=== PATIENT | female | born 1980 | race Two or more races ===

== ENCOUNTER 2024-07-10 20:10 | Emergency (ER) | payer MEDICAID, SELFPAY ==
[2024-07-10 20:13] VITALS: BP 161/87; PULSE 83; RESP 20; TEMP 36.8; O2SAT 100
[2024-07-10 20:31] VITALS: PULSE 76; RESP 18; O2SAT 98
[2024-07-10 20:33] VITALS: BMI 42.5
--- NOTE | 2024-07-10 21:06 | PD.EDRME ---
Rapid Medical Screening Exam RME Arrival date/time: 07/10/24 20:10 44 year old female present to Ed for c/o of chest Pain for 1 day I have greeted and performed a focused initial assessment of this patient. A comprehensive ED assessment and evaluation of the patient, analysis of all test results, and completion of the medical decision making process will be conducted by additional ED providers. Chief Complaint: Chest Pain Time Seen by Provider: 07/10/24 20:21 Vital signs: Vital Signs Temperature 98.3 F 07/10/24 20:13 Pulse Rate 83 07/10/24 20:13 Respiratory Rate 20 07/10/24 20:13 Blood Pressure 161/87 H 07/10/24 20:13 Pulse Oximetry (%) 100 07/10/24 20:13 Oxygen Delivery Method Room Air 07/10/24 20:13
--- NOTE | 2024-07-10 21:07 | XR_ITS ---
Examination: PA lateral chest 2 views Technique: Upright PA lateral chest 2 views Exam date and time: July 10, 2024 2115 hrs. Comparison May 05, 2020 Indications: Onset chest pain today. Findings: Normal heart size The lungs are clear. The osseous structures are intact. Impression: No active disease
[2024-07-10 21:09] VITALS: BP 167/88; PULSE 74; RESP 17; TEMP 36.9; O2SAT 99
[2024-07-10 21:48] LABS: Basophils % (Auto) 0 % (0-2.5); Eosinophils # (Auto) 0.3 Thou/mm3 (0.0-0.5); Eosinophils % (Auto) 3 % (0-10); Hematocrit 30.5 % (36.0-46.0); Hemoglobin 9.2 g/dL (12.0-16.0); Immature Granulocytes % (Auto) 0 % (0-0); Immature Granulocytes Auto 0.02 Thou/mm3 (0.00-0.00); Lymphocytes # (Auto) 2.8 Thou/mm3 (1.0-4.8); Lymphocytes % (Auto) 29 % (10-50); Mean Corpuscular HGB Conc 30.2 g/dl (31.0-37.0); Mean Corpuscular Hemoglobin 20.7 pg (25.0-35.0); Mean Corpuscular Volume 69 fL (80-100); Monocytes # (Auto) 0.5 Thou/mm3 (0.0-0.8); Monocytes % (Auto) 5 % (0-12); Neutrophils % (Auto) 63 % (37-80); Nucleated Red Blood Cell % 0 /100 WBC (0); Platelet Count 408 Thou/mm3 (140-440); RDW Standard Deviation 46.4 fL (36.4-46.3); Red Blood Count 4.44 Miln/mm3 (4.00-5.20); White Blood Count 9.6 Thou/mm3 (3.6-11.0)
[2024-07-10 21:50] LABS: B-Type Natriuretic Peptide < 20 pg/mL (0-100)
[2024-07-10 21:52] LABS: Alanine Aminotransferase 24 U/L (10-49); Albumin, Serum 4.4 gm/dL (3.5-5.0); Albumin/Globulin Ratio 1.5 (1.2-2.2); Alkaline Phosphatase 63 U/L (46-116); Anion Gap 8 (7-16); Aspartate Amino Transferase 16 U/L (0-34); BUN/Creatinine Ratio 11 Ratio (12-20); Bilirubin,Total 0.3 mg/dL (0.3-1.2); Blood Urea Nitrogen 9 mg/dL (9-23); Calcium 9.2 mg/dL (8.3-10.6); Calcium (Corrected) 9.2 mg/dL (8.5-10.1); Carbon Dioxide 24.7 mMol/L (20.0-31.0); Chloride 106 mMol/L (98-107); Creatinine (Component) 0.8 mg/dL (0.6-1.3); Estimated Creatinine Clearance 105.1 mL/min (>60); Glucose 99 mg/dL (74-106); Lipase 36 U/L (12-53); Magnesium 1.8 mg/dL (1.6-2.6); Osmolality,Calculated 276 (275-295); Potassium 3.7 mMol/L (3.4-5.1); Sodium 139 mMol/L (136-145); Total Protein 7.4 gm/dL (5.7-8.2); Troponin I < 0.020 ng/mL (0.0-0.045); eGFR > 60 See Note
[2024-07-10 22:22] LABS: HCG,Qualitative Serum Negative
--- NOTE | 2024-07-11 00:56 | EDNOTE_ITS ---
ED Chest Pain RME/HPI General Chief Complaint: Chest Pain Stated Complaint: CHEST PAIN Time Seen by Provider: 07/10/24 20:21 Arrival date/time: 07/10/24 20:10 44 year old female present to emergency room with c/o of chest pain for 1 day. LOCATION: chest SEVERITY: Symptoms are described as being severe with limitations on activities of daily living CONTEXT: The patient is unable to identify any inciting events. DURATION/TIMING: The symptoms started approximately 1 day ASSOCIATED SYMPTOMS: The patient is unable to identify any other associated symptoms. MODIFYING FACTORS: The patient is unable to identify any alleviating or aggravating symptoms. PERTINENT ROS: no fevers, no cough, no pleuritic pain, no ripping or tearing sensations, denies any lower extremity edema and no unilateral swelling, no shortness of breath no nausea,vomiting, diarrhea, no dizziness/headache no rash no loc/syncope episode no abd/back pain no dsyuria,urgency,frequency REVIEW OF SYSTEMS: See History of Present Illness - with the exception of those mentioned in the history of present illness, all other systems reviewed and reported as negative GENERAL: In general the patient is awake, interactive, in an emergency department gurney. HEAD/EYES/EARS/NOSE/THROAT: normo-cephalic, atraumatic, mucus membranes are mo ist, anicteric, palpebral conjunctiva is pink, trachea is midline. CARDIOVASCULAR: regular rate and regular rhythm, no murmurs, heart sounds are not distant, strong pulses in all four extremities that are equal and symmetric bilateral upper and lower extremities, normal capillary refill. CHEST/PULMONARY: normal chest rise and fall, good air movement, clear to auscultation bilaterally, normal inspiratory to expiratory ratios without evidence of respiratory distress. NECK: No midline/Paraspinal tenderness, no step off ROM/Strenght intact No Kernig and bruzinski sign. No trauma ABDOMEN: soft, not tender, no masses appreciated BACK: normal range of motion without pain. NEUROLOGICAL: cranio-facial features are symmetric, moves all four extremities equally without obvious limitations or weakness. EXTREMITY: no tenderness to palpation over the long bones or large joints of the bilateral upper and lower extremities, no joint swelling, no joint erythema, no signs of trauma, no unilateral leg swelling and no peripheral edema. SKIN: warm, dry, well-perfused, no jaundice, no rash, no telangiectasias or petechia. PSYCH: calm, cooperative, no evidence of psychosis or agitation RME / HPI RME / HPI narrative: 07/10/24 20:10 44 year old female present to Ed for c/o of chest Pain for 1 day I have greeted and performed a focused initial assessment of this patient. A comprehensive ED assessment and evaluation of the patient, analysis of all test results, and completion of the medical decision making process will be conducted by additional ED providers. Related Data Previous Rx's ?Medication ?Instructions ?Recorded ibuprofen 800 mg tablet 800 mg PO TID PRN pain #30 tabs 05/06/20 Allergies Allergy/AdvReac Type Severity Reaction Status Date / Time codeine Allergy Unknown SEVERE Verified 03/25/14 07:29 NAUSEA & RASH No Known Allergies Allergy Unknown Uncoded 03/29/03 07:13 Course Course Course Narrative: Given History, Exam, and Workup I have low suspicion for ACS, Pneumothorax, Bacterial Pneumonia, Pulmonary Embolus, Tamponade, Aortic Dissection or other emergent problem as a cause for this presentation.? Last Stress Test:? never Last Heart Catheterization:? never HEART Score: 0 PERC negative low risk for PE? Quality Measures none Orders Category Date Time Status EKG (ED ONLY) *Do not use* NOW Care 07/10/24 21:07 Completed EKG (ED Only) Stat Exams 07/10/24 21:07 Ordered XR chest 2V Stat Exams 07/10/24 21:07 Completed B-Type Natriuretic Peptide Stat Lab 07/10/24 21:25 Completed CBC Stat Lab 07/10/24 21:25 Completed Comprehensive Metabolic Panel Stat Lab 07/10/24 21:25 Completed HCG,Qualitative Serum Stat Lab 07/10/24 21:25 Completed Lipase Stat Lab 07/10/24 21:25 Completed Magnesium Stat Lab 07/10/24 21:25 Completed Troponin I Stat Lab 07/10/24 21:25 Completed Vital Signs Vital signs: Vital Signs Temperature 98.3 F 07/10/24 20:13 Pulse Rate 83 07/10/24 20:13 Respiratory Rate 20 07/10/24 20:13 Blood Pressure 161/87 H 07/10/24 20:13 Pulse Oximetry (%) 100 07/10/24 20:13 Oxygen Delivery Method Room Air 07/10/24 20:13 Procedures -ED EKG Interpretation #1: Date of EK07/10/24 Rate: 71 Interpretation: Reviewed by me EKG Impression: Normal sinus rhythm, No acute ST-T changes and No ischemic changes Chest Pain Patient data External records reviewed:: None Clinical information provided by:: patient Social determinants that could affect healthcare access:: none Patient has the following chronic illnesses:: none How is presenting disease/condition affected by chronic disease/condition?: no chronic disease Evaluation data The following diagnostics were reviewed and interpreted by me:: lab results, radiology exam(s) and EKG tracing(s) Lab and/or radiology exams considered but not ordered:: none Interpretation Summary: CXR: nad cbc/cmp no acute findings trop negative bnp wnl none Medications / Prescriptions Medications or Prescriptions considered but not ordered:: none Medication administrations:: none Consultations Consultation(s) initiated? (list below): No Diagnosis Most likely diagnosis given after review of the tests above:: chest pain Admission Indicated Admission indicated?: not indicated Admission Request Was there a request for admission?: No Disposition Plan Disposition Plan: Discharge Discharge Attestation Discharge Attestation: The patient and all family members were given an opportunity to ask questions and understood the discharge instructions. Discharge instructions specifically effects, indications for sooner follow up or return to the emergency department, and the expected course of current diagnosis. Patient condition: Stable Discharge Plan Plan Patient Disposition: HOME (Self Care) Health Concerns: Follow with PMD as directed Take tylenol or motrin as need Return to ED if sx worsen Prescriptions/Referrals Prescriptions/Med Rec: No Action ibuprofen 800 mg tablet 800 mg PO TID PRN (Reason: pain) Qty: 30 0RF Referrals: No Primary/Family,Physician [Primary Care Provider] - In 1 week Problem List Clinical Impression: Chest pain Patient/Caregiver Discharge Instructions Education Materials: ED Chest Pain, Uncertain Cause Print Language: Gabonese Stand Alone Forms: Kimberly Award Info., Patient Portal Info Letter
== END 2024-07-11 01:01 | disposition home or self-care (01) ==
PROVIDERS: Physician Assistant; Emergency Provider Emergency Medicine
DX: R07.9 Chest pain, unspecified (principal); I45.10 Unspecified right bundle-branch block
CPT/HCPCS: 36415; 71046; 80053; 83690; 83735; 83880; 84484; 84703; 85025; 93005; 99283

== ENCOUNTER 2025-03-12 11:04 | Emergency (ER) | payer MEDICAID, SELFPAY ==
--- NOTE | 2025-03-12 11:07 | EKG_ITS ---
[facility] Test Date: 2025-03-12 Pat Name: JI VARGAS Department: Room: - Gender: Female [employer]er: : 1980 Requested By: ED Temporary Provider Order Number: [id number] Reading MD: ED Temporary Provider Measurements Intervals Candor Rate: 78 P: 32 ID: [id number] QRS: -1 QRSD: 94 T: 9 QT: 367 QTc: 420 Interpretive Statements SINUS RHYTHM MINIMAL VOLTAGE CRITERIA FOR LVH, CONSIDER NORMAL VARIANT [MEETS CRITERIA IN ONE OF: R(aVL), S(V1), R(V5), R(V5/V6)+S(V1)] No previous ECG available for comparison /store/S0/[id number].pdf
[2025-03-12 11:16] VITALS: BP 145/85; PULSE 78; RESP 19; TEMP 36.7; O2SAT 98; BMI 43.9
--- NOTE | 2025-03-12 11:34 | XR_ITS ---
Examination: PA lateral chest 2 views TECHNIQUE: Upright PA lateral chest 2 views Date and time: March 12, 2000 2512 noon, comparison July 10, 2024 FINDINGS: Normal heart size. Suspicious for 9 mm pulmonary nodule left upper lobe No pneumonia or pulmonary edema IMPRESSION: Recommend CT chest without contrast follow-up to confirm 9 mm pulmonary nodule left upper lobe
--- NOTE | 2025-03-12 11:34 | XR_ITS ---
Examination: CT brain head without contrast. 2-D sagittal coronal reconstructions Date and time of exam:March 12, 2025 11:50 PM a.m. INDICATIONS: Severe generalized head pain today COMPARISON: May 05, 2020 CTDI: vol (mGy):53.4 DLP: (mGycm):1017 Technique: Multiple CT axial sections of the brain have been obtained, 5 mm slice thickness. Contrast has not been administered. 2-D sagittal, coronal reconstructions have been obtained Low dose protocols were performed. One or more of the following dose reduction techniques were used; automated exposure control, adjustment of the mA and/or KV according to patient size, use of iterative reconstruction technique. Findings: No significant ventricular enlargement. Intra-axial or extra-axial hemorrhage density is not seen. No mass effect or midline shift Basal cisterns are not remarkable. Fourth ventricle is midline. Cranial vault intact. Impression: Negative for acute hemorrhage, mass effect or midline shift Advise clinical correlation follow-up accordingly
--- NOTE | 2025-03-12 11:34 | PD.EDRME ---
Rapid Medical Screening Exam RME Arrival date/time: 03/12/25 11:04 45-year-old female presents to the Emergency Department today for complaints of headache and chest pain Chief Complaint: Chest Pain Vital signs: Vital Signs Temperature 98.0 F 03/12/25 11:16 Pulse Rate 78 03/12/25 11:16 Respiratory Rate 19 03/12/25 11:16 Blood Pressure 145/85 H 03/12/25 11:16 Pulse Oximetry (%) 98 03/12/25 11:16 Oxygen Delivery Method Room Air 03/12/25 11:16
[2025-03-12 12:07] LABS: Basophils # (Auto) 0.0 Thou/mm3 (0.0-0.2); Basophils % (Auto) 0 % (0-2.5); Eosinophils # (Auto) 0.2 Thou/mm3 (0.0-0.5); Eosinophils % (Auto) 2 % (0-10); Hematocrit 30.4 % (36.0-46.0); Hemoglobin 9.0 g/dL (12.0-16.0); Immature Granulocytes Auto 0.02 Thou/mm3 (0.00-0.00); Lymphocytes # (Auto) 2.6 Thou/mm3 (1.0-4.8); Lymphocytes % (Auto) 30 % (10-50); Mean Corpuscular HGB Conc 29.6 g/dl (31.0-37.0); Mean Corpuscular Hemoglobin 20.4 pg (25.0-35.0); Mean Corpuscular Volume 69 fL (80-100); Monocytes # (Auto) 0.5 Thou/mm3 (0.0-0.8); Monocytes % (Auto) 5 % (0-12); Neutrophils # (Auto) 5.6 Thou/mm3 (1.8-7.7); Neutrophils % (Auto) 63 % (37-80); Nucleated Red Blood Cell # 0.00 Thou/mm3 (0.00-0.00); Nucleated Red Blood Cell % 0 /100 WBC (0); Platelet Count 427 Thou/mm3 (140-440); RDW Standard Deviation 47.3 fL (36.4-46.3); Red Blood Count 4.41 Miln/mm3 (4.00-5.20); White Blood Count 8.9 Thou/mm3 (3.6-11.0)
[2025-03-12 12:31] LABS: Alanine Aminotransferase 20 U/L (10-49); Albumin, Serum 3.9 gm/dL (3.5-5.0); Albumin/Globulin Ratio 1.4 (1.2-2.2); Alkaline Phosphatase 54 U/L (46-116); Anion Gap 9 (7-16); Aspartate Amino Transferase 20 U/L (0-34); BUN/Creatinine Ratio 10 Ratio (12-20); Bilirubin,Total 0.4 mg/dL (0.3-1.2); Blood Urea Nitrogen 7 mg/dL (9-23); Calcium 8.9 mg/dL (8.3-10.6); Calcium (Corrected) 9.0 mg/dL (8.5-10.1); Carbon Dioxide 23.5 mMol/L (20.0-31.0); Chloride 108 mMol/L (98-107); Creatinine (Component) 0.7 mg/dL (0.6-1.3); Estimated Creatinine Clearance 116.7 mL/min (>60); Free T4 (Free Thyroxine) 1.01 ng/dL (0.89-1.76); Globulin 2.7 gm/dL (2.3-3.5); Glucose 108 mg/dL (74-106); Osmolality,Calculated 278 (275-295); Potassium 3.7 mMol/L (3.4-5.1); Sodium 140 mMol/L (136-145); Thyroid Stimulating Hormone 3.33 uIU/mL (0.55-4.78); Total Protein 6.6 gm/dL (5.7-8.2); Troponin I < 0.020 ng/mL (0.0-0.045); eGFR > 60 See Note
--- NOTE | 2025-03-12 14:05 | PD.EDCHEST ---
ED Chest Pain RME/HPI General Chief Complaint: Chest Pain Stated Complaint: CHEST PAIN, HEADACHE, N/V Time Seen by Provider: 03/12/25 12:52 Arrival date/time: 03/12/25 11:04 RME / HPI RME / HPI narrative: 03/12/25 11:04 45-year-old female presents to the Emergency Department today obesity, came in for evaluation regarding midsternal chest pain. Onset of symptoms around 10:00 this morning sudden onset of midsternal chest pain, it happened while working, described as sharp pain, severity moderate. Patient also complained of headache and dizziness. Patient is denying any focal neurologic deficit. Patient is ambulatory and denies any cough denies any fever denies any shortness of breath. No medication was taken prior to ER visit. 4 Related Data Previous Rx's ?Medication ?Instructions ?Recorded ibuprofen 800 mg tablet 800 mg PO TID PRN pain #30 tabs 05/06/20 pantoprazole 40 mg tablet,delayed 40 mg PO QDAY #20 tabs 03/12/25 release (Protonix) Allergies Allergy/AdvReac Type Severity Reaction Status Date / Time codeine Allergy Unknown SEVERE Verified 03/25/14 07:29 NAUSEA & RASH Review of Systems Review of Systems Narrative Review of Systems: Review of system reviewed and within normal limits except mentioned in HPI ED Exam Narrative Physical exam: VITAL SIGNS: Reviewed. GENERAL APPEARANCE: Alert and interactive, follows commands, no acute distress, HEAD AND FACE: Non-traumatic. ENT: PERRL, pink conjunctivitis, eyelid no trauma, Mucous membrane moist. NECK: Supple, nontender, no nuchal rigidity. CHEST:+ Substernal tenderness, no crepitus, no paradoxical movement, no retractions. LUNGS: Clear, well ventilated, symmetric, no rales, no wheezing, no ronchi, no stridor, good breath sounds bilaterally. HEART: Regular rate, regular rhythm, no murmur, no gallops. ABDOMEN: Soft, positive bowel sounds, nondistended, no guarding, nontender, no rebound, no masses, RECTAL: Deferred. GENITAL: Deferred. NEUROLOGICAL: Gross motor function intact sensory function intact, Appropriate for age. MUSCULOSKELETAL: low back nontender, full range of motion. EXTREMITIES: Nontender, full range of motion. SKIN: Color pink, dry, no rash, no lacerations, no abrasions, no contusions. LYMPHATICS: Deferred. Course Quality Measures none Orders Category Date Time Status EKG (ED ONLY) *Do not use* NOW Care 03/12/25 11:[address] head/brain wo con Stat Exams 03/12/25 11:34 Completed EKG (ED Only) Stat Exams 03/12/25 11:07 Draft XR chest 2V Stat Exams 03/12/25 11:34 Completed CBC Stat Lab 03/12/25 11:40 Completed Comprehensive Metabolic Panel Stat Lab 03/12/25 11:40 Completed Free T4 (Free Thyroxine) Stat Lab 03/12/25 11:40 Completed TSH [Thyroid Stimulating Hormone] Stat Lab 03/12/25 11:40 Completed Troponin I Stat Lab 03/12/25 11:40 Completed Troponin I Stat Lab 03/12/25 14:20 Completed Ketorolac Inj [Toradol Inj] Med 03/12/25 14:04 Discontinued 30 mg IM X1 ONE mg Hyd/Al Hyd/Pavel Susp [Maalox Susp] Med 03/12/25 14:04 Discontinued 30 ml PO X1 ONE Vital Signs Vital signs: Vital Signs Temperature 98.0 F 03/12/25 11:16 Pulse Rate 78 03/12/25 11:16 Respiratory Rate 19 03/12/25 11:16 Blood Pressure 145/85 H 03/12/25 11:16 Pulse Oximetry (%) 98 03/12/25 11:16 Oxygen Delivery Method Room Air 03/12/25 11:16 Chest Pain MDM Narrative MDM Narrative:: 45-year-old female presents to the Emergency Department today obesity, came in for evaluation regarding midsternal chest pain. Onset of symptoms around 10:00 this morning sudden onset of midsternal chest pain, it happened while working, described as sharp pain, severity moderate. Patient also complained of headache and dizziness. Patient is denying any focal neurologic deficit. Patient is ambulatory and denies any cough denies any fever denies any shortness of breath. No medication was taken prior to ER visit. CT scan of the head came back unremarkable. Patient's chest x-ray showed came back with 9 mm nodule on the left upper lung patient told me that she had a history of valley fever, completed treatment for 3 months. Laboratory workup unremarkable including initial troponin which is normal. TSH is normal also. Patient EKG showed normal sinus rhythm ventricular rate of 78 bpm. Repeat troponin was done and also came back unremarkable after 3 hours. Was given Toradol and Maalox. Her repeat troponin also came back normal. Results discussed with the patient. Patient stable for discharge home. Patient data External records reviewed:: None Clinical information provided by:: none Social determinants that could affect healthcare access:: none Patient has the following chronic illnesses:: None How is presenting disease/condition affected by chronic disease/condition?: no chronic disease Evaluation data The following diagnostics were reviewed and interpreted by me:: lab results, radiology exam(s) and EKG tracing(s) Lab and/or radiology exams considered but not ordered:: None see results and Interpretation Summary: See results MDM Medications / Prescriptions Medications or Prescriptions considered but not ordered:: None Medication administrations:: Medication Administration History Discontinued Medications Al Hydrox/Mg Hydrox/Simethicone (Mg Hyd/Al Hyd/Pavel (Maalox Reg) Susp 30 Ml Udc) 30 ml PO X1 ONE Stop: 03/12/25 14:05 Last Admin: 03/12/25 14:20 Dose: 30 ml Documented By: RADHA Ketorolac Tromethamine (Ketorolac Inj 60 Mg/2 Ml Vial) 30 mg IM X1 ONE Stop: 03/12/25 14:05 Last Admin: 03/12/25 14:20 Dose: 30 mg Documented By: RADHA Maalox and Toradol Consultations Consultation(s) initiated? (list below): No Diagnosis Chest Pain Differential Diagnosis: pneumothorax and chest pain Most likely diagnosis given after review of the tests above:: Headache chest pain Admission Indicated Admission indicated?: not indicated Admission Request Was there a request for admission?: No Disposition Plan Disposition Plan: Discharge Discharge Attestation Discharge Attestation: The patient was given an opportunity to ask questions and understood the discharge instructions. Discharge instructions specifically effects, indications for sooner follow up or return to the emergency department, and the expected course of current diagnosis. Patient condition: Stable Discharge Plan Plan Patient Disposition: HOME (Self Care) Discharge Disposition comment: Stable Prescriptions/Referrals Prescriptions/Med Rec: New pantoprazole [Protonix] 40 mg tablet,delayed release (DR/EC) 40 mg PO QDAY Qty: 20 0RF No Action ibuprofen 800 mg tablet 800 mg PO TID PRN (Reason: pain) Qty: 30 0RF Referrals: Elizabeth Potts PA-C [Primary Care Provider] - In 1 week Problem List Clinical Impression: Chest pain, Head ache Patient/Caregiver Discharge Instructions Discharge Activity: activity as tolerated Education Materials: Self-Care for Headaches Additional Instructions: Thank you for the opportunity for serving you today. You are stable for discharged . You are advised to: Follow-up with your PCP in 1 to 2 days Return to ED for worsening of symptoms Increase oral fluids Take medication as prescribed Print Language: Indonesian Stand Alone Forms: Kimberly Award Info., Patient Portal Info Letter CHANG/JAVIER Supervising Physician TIM Supervising Physician: MD Momo
[2025-03-12] MEDS: MG HYD/AL HYD/SIME (Maalox Reg) SUSP 30 ML UDC PO (14:20)
[2025-03-12] MEDS: KETOROLAC INJ 60 MG/2 ML VIAL 30 MG IM (14:20)
[2025-03-12 14:45] LABS: Troponin I < 0.020 ng/mL (0.0-0.045)
== END 2025-03-12 16:15 | disposition home or self-care (01) ==
PROVIDERS: Nurse Practitioner Family; Emergency Provider Nurse Practitioner Primary Care; PCP Physician Assistant
DX: R07.89 Other chest pain (principal); R51.9 Headache, unspecified; R94.31 Abnormal electrocardiogram [ECG] [EKG]
CPT/HCPCS: 36415; 70450; 71046; 80053; 84439; 84443; 84484; 85025; 93005; 96372; 99284; J1885; A9270